=== PATIENT | female | born 1985 | race Caucasian/White ===

== ENCOUNTER 2024-03-21 06:19 | Day surgery (SDC) | payer OTHER, SELFPAY ==
[2024-03-21] VITALS (8 sets, daily range): BP systolic 94–113; BP diastolic 52–66; BMI 22.5
[2024-03-21] MEDS: NORMOSOL-R/PLASMALYTE-A 1000 IV (12:12)
== END 2024-03-21 16:23 | disposition home or self-care (01) ==
LOC: SDS 06:19
PROVIDERS: ATTENDING PHYSICIAN Otolaryngology Facial Plastic Surgery
DX: S02.2XXA Fracture of nasal bones, initial encounter for closed fracture (principal); X58.XXXA Exposure to other specified factors, initial encounter; J34.829 Nasal valve collapse, unspecified; J34.89 Other specified disorders of nose and nasal sinuses; J34.2 Deviated nasal septum
CPT/HCPCS: 21335; 30520; 30140; 88304; 88311